=== PATIENT | male | born 1955 | race Caucasian/White ===

== ENCOUNTER 2019-01-04 09:40 | Day surgery (SDC) | payer OTHER ==
[2019-01-04] MEDS ORDERED: MIDAZOLAM 1 MG/ML 2 ML INJ ×2 (10:52)
[2019-01-04] MEDS ORDERED: FENTAnyl 50 MCG/ML VIAL (10:52)
== END 2019-01-04 13:37 | disposition home or self-care (01) ==
LOC: GIL 09:40
DX: Z12.11 Encounter for screening for malignant neoplasm of colon (principal); K64.4 Residual hemorrhoidal skin tags
CPT/HCPCS: 45382